=== PATIENT | male | born 1970 | race Caucasian/White ===

== ENCOUNTER 2018-09-15 01:43 | Emergency (ER) | payer OTHER ==
[~2018-09-15] VITALS: Ht 167.6 cm; Wt 88.9 kg
[2018-09-15] MEDS ORDERED: PROMETH-CODEIN 65 ML PO (03:26)
[2018-09-15] MEDS ORDERED: TESSALON PERLE100 M1 PO (03:26)
== END 2018-09-15 03:43 | disposition home or self-care (01) ==
LOC: ER 01:43
DX: R05 Cough (principal)